=== PATIENT | female | born 1955 | race Caucasian/White ===

== ENCOUNTER → 2020-08-19 | Day surgery (SDC) | payer MEDICARE, OTHER ==
[~2020-08-19] MED LIST: Bacitracin/Neomycin/Polymyxin B Oint 0.9 GM U/D Packet ONE; Lactated Ringers 1,000 ML IV SCH; Lidocaine 1% with EPINEPHrine 1:100,000 20 ML MDV ONE; Propofol 200 MG/20 ML SDV ONE
--- NOTE | 2020-08-19 11:28 | OR ---
DATE OF OPERATION: 08/19/2020 PREOPERATIVE DIAGNOSIS: SUSPICIOUS SKIN LESION, POSTERIOR RIGHT EAR. POSTOPERATIVE DIAGNOSIS: SUSPICIOUS SKIN LESION, POSTERIOR RIGHT EAR. SURGEON: Urbano Germain MD PROCEDURE: WIDE LOCAL EXCISION OF SKIN LESION MEASURING 1 X 2-1/2 CM. ANESTHESIA: Local plus MAC. SPECIMEN: Skin lesion. INDICATIONS: This 65-year-old female has this nonhealing suspicious lesion posterior to the ear on the skin adjoining the neck. Biopsy did not show this to be cancer, but visually this looks ulcerated and is consistent with cancer. The lesion itself measures 1 cm wide by 2-1/2 cm long. DESCRIPTION OF PROCEDURE: After adequate preparation, 1% xylocaine with epinephrine was used to infiltrate an area around the skin lesion. An elliptical incision was made and carried up onto the posterior portion of the ear and down into the bottom of the earlobe area and then posteriorly along the neck. Full-thickness elevation was accomplished by undermining this skin lesion. There really are not any other margins with this. If I made it too much bigger, I would need to do an almost rotational flap to close this, so the margin of the resection is the same as the tumor area itself. There was only minimal bleeding. A few 3-0 Vicryl subcutaneous sutures were used and then the skin was closed with interrupted 4-0 nylon sutures. GUNJAN/GIOVANY /[id number]
[2020-08-19 12:26] VITALS: BP 131/73; PULSE 68
== END ==
LOC: CC.SDS 12:20
PROVIDERS: ATTEND Surgery
DX: L98.499 Non-pressure chronic ulcer of skin of other sites with unspecified severity (principal); G89.29 Other chronic pain; R53.1 Weakness; Z98.890 Other specified postprocedural states; Z87.891 Personal history of nicotine dependence; Z88.8 Allergy status to other drugs, medicaments and biological substances; Z88.1 Allergy status to other antibiotic agents; Z79.899 Other long term (current) drug therapy
CPT/HCPCS: 88305; 93016; 93018; J2704; J7120

== ENCOUNTER 2024-05-29 09:48 | Emergency (ER) | payer MEDICARE, OTHER ==
[2024-05-29] MEDS: Sodium Chloride 0.9% 1,000 ML IV ONE ×2 (10:27→11:28)
[2024-05-29] MEDS: Ondansetron 4 MG/2 ML SDV IVPUSH PRN (10:28)
[2024-05-29] MEDS: HYDROmorphone 1 MG/ML Syringe IVPUSH ONE (10:30)
[2024-05-29 10:45] LABS: HEMATOCRIT 34.3 % (37.0-47.0); HEMOGLOBIN 11.6 g/dL (12.0-16.0); MEAN CORPUSCULAR HEMOGLOBIN 29.6 pg (27.0-32.0); MEAN CORPUSCULAR HGB CONC 33.8 g/dL (32.0-36.0); MEAN CORPUSCULAR VOLUME 87.5 fL (83.0-97.0); PLATELET COUNT,PLT 308 10^3/uL (150-400); RED BLOOD CELL COUNT 3.92 x10^6/uL (4.00-5.50)
[2024-05-29 11:02] LABS: ALBUMIN 1.4 g/dL (3.4-5.0); BILIRUBIN TOTAL 0.6 mg/dL (0.0-1.0); CALCIUM 8.1 mg/dL (8.4-10.1); CREATININE 2.4 mg/dL (0.6-1.0); EST CRCL DRUG DOSING (CG) 19.63 mL/min; MAGNESIUM 1.7 mg/dL (1.8-2.4); POTASSIUM,K 4.8 mEq/L (3.5-5.0); PROTEIN TOTAL,TP 5.5 g/dL (6.4-8.2)
[2024-05-29 11:14] LABS: LYMPHOCYTES ABSOLUTE MAN 0.32 10^3/uL (1.00-4.80); LYMPHOCYTES PERCENT MAN 1 % (21-55); MONOCYTES ABSOLUTE MAN 0.63 10^3/uL (0.00-0.80); MONOCYTES PERCENT MAN 2 % (2-12); NEUTROPHILS ABSOLUTE MAN 30.75 10^3/uL (1.80-7.00); SEG NEUTROPHILS PERCENT MAN 97 % (35-85)
[2024-05-29 11:15] LABS: WHITE BLOOD CELL COUNT,WBC 31.7 10^3/uL (4.0-11.0)
[2024-05-29] MEDS: Piperacillin/Tazobactam 4.5 GM in Sodium Chloride 0.9% 100 ML IV ONE (11:29)
[2024-05-29] MEDS: VANCOmycin 1.5 GM/300 ML 1.5 GM in Premix Bag 1 BAG IV ONE (12:01)
[2024-05-29 12:55] LABS: APPEARANCE,URINE CLOUDY (CLEAR); COLOR,URINE YELLOW (YELLOW); GLUCOSE,URINE NEGATIVE (NEGATIVE); KETONES,URINE NEGATIVE (NEGATIVE); LEUKOCYTE ESTERASE,URINE NEGATIVE (NEGATIVE); NITRITE,URINE NEGATIVE (NEGATIVE); OCCULT BLOOD,URINE NEGATIVE (NEGATIVE); PH,URINE 5.5 (4.5-8.0); PROTEIN,URINE >=300 mg/dL (NEGATIVE); UROBILINOGEN,URINE 0.2 EU/dL (0.2-1.0)
[2024-05-29 13:07] LABS: BACTERIA,URINE MODERATE /HPF (NOT SEEN); BILIRUBIN,URINE SMALL (NEGATIVE); RBC,URINE NOT SEEN /HPF (0-5); SQUAMOUS EPITHELIAL CELLS,UR MODERATE /HPF (NOT SEEN)
[2024-05-29 14:08] VITALS: BP 124/76; PULSE 108
== END 2024-05-29 13:05 ==
LOC: CC.ED 09:48 → SUPCPDRO 09:48 → CC.ED 13:05
DX: A41.9 Sepsis, unspecified organism (principal); R65.20 Severe sepsis without septic shock; N17.9 Acute kidney failure, unspecified; D72.829 Elevated white blood cell count, unspecified; E87.20 Acidosis, unspecified; K63.1 Perforation of intestine (nontraumatic); Z88.1 Allergy status to other antibiotic agents; Z88.2 Allergy status to sulfonamides; Z79.899 Other long term (current) drug therapy
CPT/HCPCS: 36415; 74176; 80053; 81001; 83605; 83690; 83735; 85025; 87040; 87086; 96361; 96365; 96367; 96375; 99285-25; J1170; J2405; J2543; J3372; J3490; J7030